=== PATIENT | female | born 1980 | race Caucasian/White ===

== ENCOUNTER 2020-06-27 17:56 | Observation (INO) | payer OTHER ==
[~2020-06-27] VITALS: Ht 170.2 cm; Wt 64.4 kg
[2020-06-27] MEDS ORDERED: AMITRIPTYLINE H75 MG PO (19:44)
[2020-06-27] MEDS ORDERED: FLONASE 0.05% N16 GM (19:44)
[2020-06-27 20:23] LABS: HEMOGLOBIN 14.5 gm/dl (12.3-15.3); RED BLOOD COUNT 4.4 M/UL (4.00-5.10)
[2020-06-27 20:49] LABS: BUN/CREATININE RATIO 32 (0-10)
[2020-06-28 09:49] LABS: HEMOGLOBIN 13.5 gm/dl (12.3-15.3); RED BLOOD COUNT 4.07 M/UL (4.00-5.10); WHITE BLOOD COUNT 8.3 K/UL (4.5-11.0)
[2020-06-29 04:49] LABS: BUN/CREATININE RATIO 32 (0-10)
[2020-06-29 08:14] LABS: RHEUMATOID ARTHRITIS FACTOR <10.0 IU/mL (0.0-13.9)
[2020-06-29] MEDS ORDERED: CEFUROXIME500 MG PO (11:13)
== END 2020-06-29 13:36 | disposition home or self-care (01) ==
LOC: MED SURG 4 19:07
PROVIDERS: Internal Medicine; Psychiatry & Neurology Neurology; ADMIT Internal Medicine
DX: R53.1 Weakness (principal); H54.7 Unspecified visual loss; G37.9 Demyelinating disease of central nervous system, unspecified; R26.81 Unsteadiness on feet; E87.6 Hypokalemia; D72.829 Elevated white blood cell count, unspecified; J44.9 Chronic obstructive pulmonary disease, unspecified; F17.210 Nicotine dependence, cigarettes, uncomplicated; F12.10 Cannabis abuse, uncomplicated; Z79.899 Other long term (current) drug therapy
CPT/HCPCS: 36415; 71046; 80048; 80053; 80307; 81001; 82607; 83735; 83916; 84132; 85025; 85610; 85730; 86038; 86431; 93005; 94640; 94664; 94760; 96374; 96375; 96376; 97163; G0378; G0379; J0696; J3411; J3475; J3480; J7030

== ENCOUNTER → 2020-07-28 | Outpatient (CLI) | payer OTHER ==
[~2020-07-28] MED LIST: AMITRIPTYLINE H75 MG PO; CEFUROXIME500 MG PO; FLONASE 0.05% N16 GM
[2020-07-28 12:52] LABS: GLUCOSE,CSF 56 mg/dL (50-80); TOTAL PROTEIN,CSF 36 mg/dL (20-45)
[2020-07-28 13:02] LABS: RBC (AUTOMATED) 100 10^6 (0); WBC (AUTOMATED 8 10^3 (0-5)
== END ==
LOC: RAD 10:17
PROVIDERS: Psychiatry & Neurology Neurology
DX: G61.0 Guillain-Barre syndrome (principal)
CPT/HCPCS: 36415; 82164; 82945; 83916; 84157; 87070; 87205; 87210; 87899; 89051; G0463

== ENCOUNTER 2020-09-04 00:03 | Inpatient (IN) | payer OTHER ==
[~2020-09-04] VITALS: Ht 170.2 cm; Wt 57.2 kg
[2020-09-05] MEDS ORDERED: VITAMIN D21250 MCG PO (17:08)
[2020-09-05] MEDS ORDERED: POTASSIUM CHLO20 ME2 PO (17:11)
[2020-09-05 20:25] LABS: HEMOGLOBIN 9.2 gm/dl (12.3-15.3); RED BLOOD COUNT 2.82 M/UL (4.00-5.10); WHITE BLOOD COUNT 5.8 K/UL (4.5-11.0)
[2020-09-05 20:48] LABS: BUN/CREATININE RATIO 18 (0-10)
[2020-09-06 07:25] LABS: HEMOGLOBIN 8.3 gm/dl (12.3-15.3); RED BLOOD COUNT 2.67 M/UL (4.00-5.10)
[2020-09-06 07:29] LABS: WHITE BLOOD COUNT 7.9 K/UL (4.5-11.0)
[2020-09-06 07:46] LABS: BUN/CREATININE RATIO 19 (0-10)
[2020-09-07 08:20] LABS: HEMOGLOBIN 8.8 gm/dl (12.3-15.3); RED BLOOD COUNT 2.68 M/UL (4.00-5.10); WHITE BLOOD COUNT 6.3 K/UL (4.5-11.0)
[2020-09-07 08:38] LABS: BUN/CREATININE RATIO 14 (0-10)
[2020-09-08 08:57] LABS: BUN/CREATININE RATIO 12 (0-10)
[2020-09-09 07:58] LABS: BUN/CREATININE RATIO 10 (0-10)
[2020-09-10] MEDS ORDERED: CLINDAMYCIN HC150 MG PO (14:46)
[2020-09-10] MEDS ORDERED: QUETIAPINE FUMA25 MG PO (14:46)
[2020-09-10] MEDS ORDERED: MULTI-VITAMIN1 EACH PO (14:46)
[2020-09-10] MEDS ORDERED: REMERON 15 MG T15 MG PO (14:46)
[2020-09-10] MEDS ORDERED: THIAMINE HCL100 MG PO (14:46)
== END 2020-09-10 17:07 | disposition home or self-care (01) | DRG 91 ==
LOC: M/S 00:03 → MED SURG 4 09-05 16:31
PROVIDERS: Internal Medicine Nephrology; ADMIT Internal Medicine
DX: R26.9 Unspecified abnormalities of gait and mobility (principal); E43 Unspecified severe protein-calorie malnutrition; G93.41 Metabolic encephalopathy; Z20.822 Contact with and (suspected) exposure to COVID-19; R44.3 Hallucinations, unspecified; Z68.1 Body mass index [BMI] 19.9 or less, adult; F32.2 Major depressive disorder, single episode, severe without psychotic features; H54.7 Unspecified visual loss; R47.81 Slurred speech; G62.1 Alcoholic polyneuropathy; R41.0 Disorientation, unspecified; R32 Unspecified urinary incontinence; F17.210 Nicotine dependence, cigarettes, uncomplicated; F12.10 Cannabis abuse, uncomplicated; E87.6 Hypokalemia; E83.42 Hypomagnesemia; F10.10 Alcohol abuse, uncomplicated; Z98.51 Tubal ligation status; Z98.890 Other specified postprocedural states
CPT/HCPCS: 36415; 70553; 72156; 80048; 80053; 80061; 82436; 83735; 84100; 84133; 84300; 85025; 85652; 86140; 96372; 96374; 96375; 96376; 97161; 97166; 97530; 97530-GP-CQ; A9577; G0378; G0379; J1650; J3411; J3475; J3480; J7030